=== PATIENT | male | born 1990 | race Caucasian/White ===

== ENCOUNTER 2019-10-12 08:42 | Emergency (ER) | payer BC, OTHER ==
[2019-10-12 08:53] VITALS: BP 143/82
--- NOTE | 2019-10-12 09:49 | ED Physician Documentation ---
PD HPI LOWER EXT INJURY - Stated complaint Stated Complaint: RT LEG PX - Chief complaint Chief Complaint: Trauma Ext - History obtained from History obtained from: Patient - History of Present Illness PD HPI LOW EXT INJURY LOCATION: Right, Thigh (posterior medial) Type of injury: Twist (he was wrestling with friend and had onset of posteromedial thigh pain up higher. Pain with ROM and hurts with walking.) Where injury occurred: Home Timing - onset: How many hours ago (1), Today Timing - details: Abrupt onset, Still present Worsened by: Moving, Palpating (medially and posteriorly on right upper thigh. Not hurting around knee.) Associated symptoms: No: Weakness, Numbness Contributing factors: No: Anticoagulated Similar symptoms before: Has not had sx before Review of Systems GI: denies: Nausea, Vomiting : denies: Dysuria, Frequency Skin: denies: Rash, Abrasion (s), Laceration (s) Neurologic: denies: Focal weakness, Numbness PD PAST MEDICAL HISTORY - Past Medical History Past Medical History: No Cardiovascular: None Endocrine/Autoimmune: None Psych: None Musculoskeletal: None - Past Surgical History Past Surgical History: No - Present Medications Home Medications: Ambulatory Orders Medication Instructions Recorded Confirmed Hydrocodone/Acetaminophen [[place] 1 each PO Q6H PRN #15 tablet 10/12/19 5-325 Tablet] Ibuprofen [Motrin] 600 mg PO TID PRN #25 tab 10/12/19 Tizanidine HCl 4 mg PO TID PRN #25 capsule 10/12/19 - Allergies Allergies/Adverse Reactions: Allergies Allergy/AdvReac Type Severity Reaction Status Date / Time Penicillins Allergy Hives Verified 10/12/19 08:50 - Social History Does the pt smoke?: No Smoking Status: Never smoker Does the pt drink ETOH?: Yes Does the pt have substance abuse?: No - Immunizations Immunizations are current?: Yes - POLST Patient has POLST: No PD ED PE NORMAL - Vitals Vital signs reviewed: Yes - General General: Alert and oriented X 3, Well developed/nourished - Back Back: No CVA TTP, No spinal TTP - Derm Derm: Normal color, Warm and dry - Extremities Extremities: Other (right knee and around knee not tender. The medial and posteromedial thigh is tender in muscles focally. He is able to flex and extend at knee but hurts with flexion. Internal rotation of knee not hurting. Adduction of the knee against resistance hurts as well. No pain with hip flexion. ) - Neuro Neuro: Alert and oriented X 3, No motor deficit, No sensory deficit, Normal speech Results - Vitals Vitals: Vital Signs - 24 hr 10/12/19 08:48 Temperature 36.6 C Heart Rate 122 H Respiratory 14 Rate Blood Pressure 143/82 H O2 Saturation 100 Oxygen O2 Source Room air - Rads (name of study) right hip Radiology: Prelim report reviewed (no fractures nor bone lesions. ), See rad report PD MEDICAL DECISION MAKING - ED course Complexity details: reviewed results (hip xray is normal), considered differential, d/w patient Departure - Departure Disposition: Home, Self Care Clinical Impression: Right hamstring muscle strain Qualifiers: Encounter type: initial encounter Qualified Code(s): S76.311A - Strain of muscle, fascia and tendon of the posterior muscle group at thigh level, right thigh, initial encounter Condition: Stable Record reviewed to determine appropriate education?: Yes Instructions: ED Strain Muscle Ext Follow-Up: [facility] [Provider Group] Prescriptions: Hydrocodone/Acetaminophen [[place] 5-325 Tablet] 1 each PO Q6H PRN #15 tablet PRN Reason: Pain Ibuprofen [Motrin] 600 mg PO TID PRN #25 tab PRN Reason: Pain Tizanidine HCl 4 mg PO TID PRN #25 capsule PRN Reason: Spasms Comments: Crutches as needed for partial to no weightbearing for comfort of the leg. Use anti-inflammatory of ibuprofen 3 times a day with food for the next week. Tizanidine muscle relaxant for spasms and stiffness 3 times a day as needed as well. To that add Tylenol or hydrocodone if needed for pains. Progress weightbearing and activity as tolerated of the muscle. Recheck if not improved well over the next week or so. Discharge Date/Time: 10/12/19 12:28
[2019-10-12] MEDS ORDERED: METHOCARBAMOL 500 MG TABLET PO STA (10:34)
[2019-10-12] MEDS ORDERED: IBUPROFEN 800 MG TABLET PO STA (10:34)
[2019-10-12] MEDS ORDERED: HYDROcod/ACETAM 5/325 MG TABLET PO STA (10:34)
--- NOTE | 2019-10-12 11:10 | XRAY Report ---
Reason: hip/leg pain with twisting mechanism Procedure Date: 10/12/2019 Accession Number: [id number] / [id number] Procedure: XR - Hip w/Pelvis 2-3V RT CPT Code: Final Report FULL RESULT: EXAM: RIGHT HIP RADIOGRAPHY EXAM DATE: 10/12/2019 10:40 AM. CLINICAL HISTORY: Right hip pain. COMPARISON: None. TECHNIQUE: 2 views. FINDINGS: Bones: Normal. No fractures or bone lesion. Joints: Normal. No dislocation. The hip joint space is preserved. Soft Tissues: Normal. No soft tissue swelling. IMPRESSION: Normal hip radiography. RADIA
== END 2019-10-12 12:28 | disposition home or self-care (01) ==
LOC: ED 08:42
DX: S76.311A Strain of muscle, fascia and tendon of the posterior muscle group at thigh level, right thigh, initial encounter (principal); X50.1XXA Overexertion from prolonged static or awkward postures, initial encounter; Y93.69 Activity, other involving other sports and athletics played as a team or group
CPT/HCPCS: 73502; 99282; 99283; A9270

== ENCOUNTER 2021-06-02 10:27 | Outpatient (CLI) | payer OTHER ==
--- NOTE | 2021-06-02 12:36 | XRAY Report ---
PROCEDURE: Thoracic Spine 3 View INDICATIONS: THORACIC BACK PAIN TECHNIQUE: 3 views of the thoracic spine were acquired. COMPARISON: None. FINDINGS: Bones: No fractures or dislocations. No suspicious bony lesions. 12 pairs of ribs are noted, and a ppear intact where visualized. Soft tissues: No paravertebral stripe thickening. IMPRESSION: There is a mild degree of convex leftward scoliosis centered at the middle third of the thoracic spin e but no fracture or subluxation is seen and no spinal or foraminal stenosis is suspected. Reviewed by: Mihai Moulton MD on 06/02/2021 12:34 PM PDT Approved by: Mihai Moulton MD on 06/02/2021 12:34 PM PDT Station ID: [id number]
== END 2021-06-02 23:59 | disposition home or self-care (01) ==
LOC: DI.N 10:27
PROVIDERS: ATTEND Family Medicine
DX: M54.6 Pain in thoracic spine (principal)